=== PATIENT | female | born 1965 | race Two or more races ===

== ENCOUNTER 2019-02-28 10:25 | Emergency (ER) | payer OTHER ==
[~2019-02-28] VITALS: Ht 165.1 cm; Wt 81.6 kg
[~2019-02-28 10:25] MED LIST: ASA81 MG; CEFADROXIL500 MG PO; Carafate Susp 1G/10ML BLIST.PACK PO; GLUCOPHAGE XR500 MG; LEVSIN/SL0.125 MG SL; LIPITOR40 MG; METFORMIN HCL1000 MG PO; METOCLOPRAMIDE H5 MG PO; PROTONIX40 MG PO; Toprol Xl 25MG TAB PO; VALTREX1000 MG PO; ZANTAC150 MG PO; ZOFRAN4 MG PO; ZOVIRAX15 GM TP
[2019-02-28] MEDS ORDERED: METFORMIN HCL850 MG (10:49)
[2019-02-28] MEDS ORDERED: TOPROL XL25 M1 (10:49)
[2019-02-28] MEDS ORDERED: ABILIFY5 MG (10:51)
== END 2019-02-28 14:06 | disposition home or self-care (01) ==
LOC: ER 10:25
DX: N30.80 Other cystitis without hematuria (principal)

== ENCOUNTER 2021-08-01 06:55 | Emergency (ER) | payer OTHER ==
[~2021-08-01] VITALS: Ht 165.1 cm; Wt 81.6 kg
[~2021-08-01 06:55] MED LIST changes: +ABILIFY5 MG; +METFORMIN HCL850 MG; +TOPROL XL25 M1
== END 2021-08-01 12:43 | disposition home or self-care (01) ==
LOC: ER 06:55
DX: N39.0 Urinary tract infection, site not specified (principal)

== ENCOUNTER 2022-08-13 14:22 | Emergency (ER) | payer OTHER ==
[~2022-08-13] VITALS: Ht 165.1 cm; Wt 81.2 kg
[2022-08-13] MEDS ORDERED: GLIMEPIRIDE4 MG PO (14:49)
[2022-08-13] MEDS ORDERED: JARDIANCE10 MG PO (14:49)
== END 2022-08-13 20:03 | disposition home or self-care (01) ==
LOC: ER 14:22
DX: S80.01XA Contusion of right knee, initial encounter (principal); S90.02XA Contusion of left ankle, initial encounter; W18.30XA Fall on same level, unspecified, initial encounter; Y93.9 Activity, unspecified; Y92.9 Unspecified place or not applicable

== ENCOUNTER 2023-01-10 19:47 | Emergency (ER) | payer OTHER ==
[~2023-01-10] VITALS: Ht 165.1 cm; Wt 81.6 kg
[~2023-01-10 19:47] MED LIST changes: +GLIMEPIRIDE4 MG PO; +JARDIANCE10 MG PO
[2023-01-10] MEDS ORDERED: COZAAR25 MG PO (20:10)
[2023-01-10] MEDS ORDERED: GLUMETZA500 MG PO (20:10)
[2023-01-10] MEDS ORDERED: METOPROLOL SUCC50 MG (20:10)
[2023-01-10] MEDS ORDERED: LIPITOR40 M1 PO (20:11)
[2023-01-10] MEDS ORDERED: PAXIL CR25 MG (20:11)
== END 2023-01-10 22:21 | disposition home or self-care (01) ==
LOC: ER 19:47
DX: B02.9 Zoster without complications (principal); Z91.040 Latex allergy status; Z91.013 Allergy to seafood

== ENCOUNTER 2025-07-26 21:12 | Emergency (ER) | payer OTHER ==
[~2025-07-26] VITALS: Ht 165.1 cm; Wt 77.1 kg
[~2025-07-26 21:12] MED LIST changes: +COZAAR25 MG PO; +GLUMETZA500 MG PO; +INTESTINEX680 M1 PO; +LIPITOR40 M1 PO; +METOPROLOL SUCC50 MG; +PAXIL CR25 MG; +PEPCID AC20 MG PO
[2025-07-26 21:55] VITALS: BP 125/72; O2SAT 99
[2025-07-26] MEDS ORDERED: FAMOTIDINE/PF 20 MG/2 ML VIAL IV PUSH STA (23:31)
[2025-07-26] MEDS ORDERED: KETOROLAC TROMETHAMINE 30 MG VIAL IV STA (23:31)
[2025-07-27] MEDS ORDERED: KETOROLAC TROMETHAMINE 30 MG VIAL ONE ×2 (01:22→06:00)
[2025-07-27] MEDS ORDERED: FAMOTIDINE/PF 20 MG/2 ML VIAL ONE (01:22)
[2025-07-27 02:12] LABS: BASO % 0.4 % (0.1-1.2); EOS # 0.57 (0.04-0.54); EOS % 6.4 % (0.7-7.0); LYMPH # 3.13 (1.18-3.74); LYMPH % 35.2 % (19.3-53.1); MEAN PLATELET VOLUME 10.30 fl (9.4-12.4); MONO # 0.64 (0.24-0.82); MONO % 7.2 % (4.7-12.5); NEUT # 4.49 (1.56-6.13); NEUT % 50.6 % (34.0-71.1); RED CELL DISTRIBUTION WIDTH 13.0 % (11.6-14.4)
[2025-07-27 02:46] LABS: ALT/SGPT 44.0 U/L (12-78); AST/SGOT 17.0 U/L (15-37); BILIRUBIN TOTAL 0.4 mg/dL (0.3-1.2); BUN CREA RATIO 19.0 (7.0-25.0); CREATININE SERUM 0.7 mg/dL (0.55-1.02); GFR 85.65; GLOBULINA 4.5 G/DL (2.4-3.5); GLUCOSE FASTING 125.0 mg/dL (65-100); OSMOLALITY SERUM 283.0 MOSM/KG (275-295)
[2025-07-27 02:52] LABS: URINE APPEARANCE Clear; URINE BILIRRUBIN Negative (NEGATIVE); URINE BLOOD Negative; URINE COLOR Yellow; URINE GLUCOSE Negative (NEGATIVE); URINE KETONE Trace (NEGATIVE); URINE LEUKOCYTE Large; URINE NITRATE Negative; URINE PROTEIN Trace (NEGATIVE); URINE UROBILINOGEN 0.2 E.U./dl
[2025-07-27 02:56] LABS: URINE BACTERIA 5515.1 uL (0.0-1933); URINE EPITHELIAL CELLS 94.4 uL (0.0-38.8); URINE RBC 3.2 uL (0.0-20.8); URINE WBC 281.3 uL (0.0-23.2)
[2025-07-27 03:20] LABS: URINE CAST 0.42 uL (0.0-1.40)
[2025-07-27] MEDS ORDERED: CEFTRIAXONE SODIUM 1,000 MG VIAL IV STA (05:59)
[2025-07-27] MEDS ORDERED: CEFTRIAXONE SODIUM 1,000 MG VIAL ONE (06:00)
[2025-07-27] MEDS ORDERED: KETOROLAC TROMETHAMINE 30 MG VIAL IV STA (06:00)
[2025-07-27] MEDS ORDERED: CIPRO500 MG PO (07:29)
[2025-07-27] MEDS ORDERED: KETO10TA2 PO (07:29)
== END 2025-07-27 08:17 ==
LOC: ER 21:13
PROVIDERS: General Practice
DX: N39.0 Urinary tract infection, site not specified (principal); R10.A1 Flank pain, right side; Z91.040 Latex allergy status; Z91.013 Allergy to seafood; I49.8 Other specified cardiac arrhythmias; E78.00 Pure hypercholesterolemia, unspecified; I10 Essential (primary) hypertension; R20.0 Anesthesia of skin